=== PATIENT | female | born 1980 | race Caucasian/White ===

== ENCOUNTER 2017-07-20 10:45 | Outpatient (CLI) | payer BC ==
[2017-07-20 11:39] VITALS: BP 133/73; PULSE 86; RESP 16; TEMP 97
--- NOTE | 2017-09-01 08:46 | P.MSEPDOC ---
Presenting Problems - Arrival Data Date of Arrival on Unit: 07/20/17 Time of Arrival on Unit: 10:49 Mode of Transport: Ambulatory Medical History - Information : 1 Para: 0 Term: 0 : 0 Abortions: Spontaneous or Elective: 0 Number of Living Children: 0 - Gestational Age Gestational Age by AT (wks/days): 26 Weeks and 1 Days Vital Signs - Temperature Temperature: 97.0 F Temperature Source: Temporal Artery Scan - Pulse Right Pulse Oximetery Pulse Rate: 86 Pulse Assessment Method: Pulse Oximetry - Respirations Respiratory Rate: 16 Oxygen Delivery Method: Room Air O2 Sat by Pulse Oximetry: 97 - Blood Pressure Right Arm Blood Pressure: 133/73 Blood Pressure Mean: 93 Blood Pressure Source: Automatic Cuff Medical Screen Scoring (Post) - Cervical Exam Dilation: 0 cm = 0 Membranes: Intact - Uterine Contractions Frequency: N/A Duration: N/A Intensity: N/A - Maternal Vital Signs Maternal Temperature: N/A Maternal Blood Pressure: N/A Signs of Preeclampsia: N/A Maternal Respirations: N/A - Maternal Trauma Maternal Trauma: N/A - Assessment Heart Rate: 150 Heart Rate - NICHD Category: Category I (Normal) = 0 Position: N/A Station: N/A - Total Score Total Score (Post): 0 - Post Treatment Level of Risk Post Treatment Level of Risk: Low (0-5) Physician Notification (Post) - Physician Notified Physician Notified Date: 07/20/17 Physician Notified Time: 11:15 Physician/Practitioner Notified:: Dr Dan Spoke With: Verbal New Order Received: Yes - Notification Comment Comment: Pt arrived today with possible Premature ROM 26 1/7 weeks gestation, amnisure negative, cervix closed, patient discharged home. Disposition - Disposition OB Disposition: Discharge to home Discharge Date: 07/20/17 Discharge Time: 11:30 I agree with the RN Medical Screening Exam: Yes Risk & Benefit of care provided described in d/c instruction: Yes Diagnosis: FALSE LABOR BEFORE 37 COMPLETED WEEKS OF GEST, SECOND TRI
== END 2017-07-20 11:30 | disposition home or self-care (01) ==
LOC: FBPOP 10:45
PROVIDERS: ATTEND Obstetrics & Gynecology
DX: O47.02 False labor before 37 completed weeks of gestation, second trimester (principal); Z3A.26 26 weeks gestation of pregnancy
CPT/HCPCS: 84112; 99213

== ENCOUNTER 2020-10-30 16:30 | Outpatient (CLI) | payer BC ==
[2020-10-30 17:48] VITALS: BP 133/77; PULSE 78; RESP 16; TEMP 98.4
--- NOTE | 2020-11-23 08:06 | P.MSEPDOC ---
Presenting Problems - Arrival Data Date of Arrival on Unit: 10/30/20 Time of Arrival on Unit: 16:28 Mode of Transport: Ambulatory - Complaint OB-Reason for Admission/Chief Complaint: Rule Out PROM Comment: pt reports possible leaking since friday morning Medical History - Information : 2 Para: 1 Term: 1 : 0 Abortions: Spontaneous or Elective: 0 Number of Living Children: 1 - Gestational Age Gestational Age by TA (wks/days): 23 Weeks and 1 Days Review of Systems - Review of Systems Constitutional: No problems Breast: No problems ENT: No problems Cardiovascular: No problems Respiratory: No problems Gastrointestinal: No problems Genitourinary: No problems Musculoskeletal: No problems Neurological: No problems Skin: No problems Vital Signs - Temperature Temperature: 98.4 F Temperature Source: Temporal Artery Scan - Pulse Right Brachial Pulse Rate: 78 Pulse Assessment Method: Automatic Cuff - Respirations Respiratory Rate: 16 Oxygen Delivery Method: Room Air - Blood Pressure Right Arm Blood Pressure: 133/77 Blood Pressure Mean: 95 Blood Pressure Source: Automatic Cuff Medical Screen Scoring (Pre) - Cervical Exam Dilation: Exam Deferred Effacement: Exam Deferred Membranes: Intact - Uterine Contractions Frequency: N/A Duration: N/A Intensity: N/A - Maternal Vital Signs Maternal Temperature: N/A Maternal Blood Pressure: N/A Signs of Preeclampsia: N/A Maternal Respirations: N/A - Maternal Trauma Maternal Trauma: N/A - Assessment - Baby A Baseline FHR: 145 Position: N/A Station: N/A - Total Score - Baby A Total Score - Baby A: 0 - Total Score - Baby B Total Score - Baby B: 0 - Total Score - Baby C Total Score - Baby C: 0 - Level of Risk - Baby A Level of Risk - Baby A: Low (0-5) - Level of Risk - Baby B Level of Risk - Baby B: Low (0-5) - Level of Risk - Baby C Level of Risk - Baby C: Low (0-5) Physician Notification (Pre) - Physician Notified Physician Notified Date: 10/30/20 Physician Notified Time: 17:05 New Order Received: Yes - Notification Comment Comment: reported pt visit with concerns of prom, reported negative amnisure but moderate moisture noted on while obtaining amnisure. reported afebrile, no bleeding, cramping contraction and positive movement per pt and audible with doppler. pt to be discharged. follow up for ultrasound in office tomorrow/ Disposition - Disposition OB Disposition: Physician follow up in office, Discharge to home Discharge Date: 10/30/20 Discharge Time: 17:22 I agree with the RN Medical Screening Exam: Yes Case reviewed; plan agreed upon as documented in EMR&OBIX.: Yes Comments: Patient was neither seen nor examined by me Diagnosis: RELATED CONDITIONS, UNSPECIFIED, SECOND TRIMESTER
== END 2020-10-30 17:22 | disposition home or self-care (01) ==
LOC: FBPOP 16:30
PROVIDERS: ATTEND Obstetrics & Gynecology
DX: O26.892 Other specified pregnancy related conditions, second trimester (principal); Z3A.23 23 weeks gestation of pregnancy
CPT/HCPCS: 84112; 99213

== ENCOUNTER 2021-02-02 05:51 | Inpatient (IN) | payer BC ==
[2021-02-02] MEDS ORDERED: OXYTOCIN 10 UNIT/ML 1 ML VIAL IM PRN (06:15)
[2021-02-02] MEDS ORDERED: TERBUTALINE 1 MG/ML VIAL SQ PRN (06:15)
[2021-02-02] MEDS ORDERED: METHYLERGONOVINE 0.2 MG/ML 1 ML AMP IM PRN (06:15)
[2021-02-02] MEDS ORDERED: PENICILLIN G POTASSIUM 5,000,000 UNIT in DEXTROSE 5% IN WATER 100 ML IVPB STA ×2 (06:15)
[2021-02-02] MEDS ORDERED: LACTATED RINGERS 1,000 ML IV SCH (06:15)
[2021-02-02] MEDS ORDERED: LIDOCAINE 0.5% (PF) 5 MG/ML (50 ML SDV) SQ PRN (06:15)
[2021-02-02] MEDS ORDERED: CARBOPROST TROMETHAMINE 250 MCG/ML 1 ML AMP IM PRN (06:15)
[2021-02-02] MEDS: LACTATED RINGERS 1,000 ML IV SCH ×3 (06:38→09:54)
[2021-02-02] MEDS ORDERED: OXYTOCIN 30 UNITS/500 ML NS 30 UNIT in SALINE 1 500ML.BAG IV SCH (08:00)
[2021-02-02 08:27] LABS: Anisocytosis Slight; Basophils % (A) 0 %; Eosinophils # (A) 0.1 k/uL (0-0.7); Eosinophils % (A) 1 %; HCT 33.5 % (34.0-46.0); HGB 11.5 gm/dL (11.4-16.0); Lymphocytes % (A) 16 %; MCH 26.8 pg (25.0-35.0); MCHC 34.3 g/dL (31.0-37.0); MCV 77.9 fL (80.0-100.0); Mean Platelet Volume 6.6; Microcytosis Slight; Monocytes # (A) 0.6 k/uL (0-1.0); Monocytes % (A) 5 %; Neutrophils # (A) 9.1 k/uL (1.3-7.7); Neutrophils % (A) 76 %; Platelet Count 246 k/uL (150-450); RDW 18.2 % (11.5-15.5)
--- NOTE | 2021-02-02 08:54 | P.HPOB ---
History of Present Illness H&P Date: 02/02/21 Chief Complaint: My water broke at 3:30 this morning This is a 40-year-old female 2 para 1001 EDC 02/23/2021 at 37 weeks gestation. Patient presents this morning with spontaneous amniorrhexis which occurred at home, continued clear fluid leakage, confirmed by amnio sure. She admits to mild uterine contractions that are irregular. Fetus is been active throughout the . Blood type is B+, rubella status immune. Pap smear, urine culture, hepatitis B surface antigen, HIV testing, gonorrhea and chlamydia cultures, preliminary group B strep cultures all negative. One-hour Glucola 137. history is also significant for advanced maternal age and chronic proteinuria. Past medical history significant for gestational hypertension with the first g estation, otherwise negative. Past surgical history is negative. Current medications vitamins daily. ALLERGIES: Tetracycline to which she reports hives On examination patient is 5 foot 5 inches, 240 pounds, blood pressure 142/86 on admission, repeat 130/70. General physical exam is within normal limits. Chest is clear in all camarena. Cervix is 5 cm dilated, 80% effaced, -2 station, vertex presentation. Artificial amniorrhexis of the fore bag reveals clear fluid. heart rate is consistent with reactive NST, baseline 140s. Impression 37 week intrauterine , active spontaneous labor. Preliminary group B strep cultures negative. Chronic proteinuria. All signs ot herwise reassuring. Advanced maternal age with normal chromosomal testing. Plan: Oxytocin augmentation if needed. Continue close maternal and surveillance. Penicillin G first dose has artery been given. Patient is requesting epidural and anesthesia team is aware. Anticipate normal spontaneous vaginal delivery. Review of Systems Constitutional: Reports as per HPI Past Medical History Past Medical History: No Reported History History of Any Multi-Drug Resistant Organisms: C-DIFF Date of last positivie culture/infection: Nov-December 2014 MDRO Source:: Stool Past Surgical History: Adenoidectomy Additional Past Surgical History / Comment(s): Rhinoplasty. Bunion surgery. Past Anesthesia/Blood Transfusion Reactions: No Reported Reaction Past Psychological History: No Psychological Hx Reported Smoking Status: Never smoker Past Alcohol Use History: None Reported Past Drug Use History: None Reported - Past Family History Father Family Medical History: No Reported History Medications and Allergies Home Medications Medication Instructions Recorded Confirmed Type Pnv 11/Iron Fum/Folic Acid/Om3 1 each PO DAILY 07/20/17 02/02/21 History [Virt-Bret Dha Softgel] Aspirin [Children's Aspirin] 81 mg PO DAILY 10/30/20 02/02/21 History Allergies Allergy/AdvReac Type Severity Reaction Status Date / Time Tetracyclines Allergy Rash/Hives Verified 10/30/20 16:36 Exam Vital Signs Temp Pulse Resp BP Pulse Ox 02/02/21 06:26 96.6 F L 87 16 134/89 98 02/02/21 06:11 96.6 F L 87 16 134/89 98 Intake and Output 02/01/21 02/02/21 02/02/21 22:59 06:59 14:59 Other: Weight 108.862 kg See dictation under HPI please Results Result Diagrams: 02/02/21 07:49 Abnormal Lab Results - Last 24 Hours (Table) 02/02/21 Range/Units 07:49 WBC 12.0 H (3.8-10.6) k/uL Hct 33.5 L (34.0-46.0) % MCV 77.9 L (80.0-100.0) fL RDW 18.2 H (11.5-15.5) % Neutrophils # 9.1 H (1.3-7.7) k/uL Assessment and Plan Assessment: 37 week intrauterine , active spontaneous labor. Preliminary group B strep cultures negative. Chronic proteinuria. Otherwise all signs reassuring. Plan: Epidural is being placed at time of this dictation. Penicillin G prophylaxis has been instituted. Continue close maternal and surveillance. Anticipate normal spontaneous vaginal delivery. Time with Patient: Less than 30
[2021-02-02] MEDS ORDERED: ROPIVACAINE 5MG/ML 20ML VIAL ONE (08:56)
[2021-02-02] MEDS ORDERED: fentaNYL (PF) 50 MCG/ML 5 ML AMP ONE (08:56)
[2021-02-02] MEDS ORDERED: SODIUM CHLORIDE 0.9% 100 ML BAG ONE (08:56)
[2021-02-02] MEDS ORDERED: ROPIVACAINE 100 MG, fentaNYL (PF). 200 MCG in SODIUM CHLORIDE 0.9% 76 ML EPIDURAL ONE (09:28)
[2021-02-02] MEDS: PENICILLIN G POTASSIUM 2,500,000 UNIT in DEXTROSE 5% IN WATER 100 ML IVPB SCH ×4 (10:16→15:17)
[2021-02-02] MEDS ORDERED: diphenhydrAMINE 50 MG/ML 1 ML VIAL IVP PRN ×2 (12:26)
[2021-02-02] MEDS ORDERED: LANOLIN CREAM 5 GM TUBE TOPICAL PRN (12:26)
[2021-02-02] MEDS ORDERED: ZOLPIDEM 5 MG TAB PO PRN (12:26)
[2021-02-02] MEDS ORDERED: diphenhydrAMINE 50 MG CAP PO PRN (12:26)
[2021-02-02] MEDS ORDERED: BENZOCAINE/MENTHOL SPRAY 1 GM/SPRAY AEROSOL TOPICAL PRN (12:26)
[2021-02-02] MEDS ORDERED: diphenhydrAMINE 25 MG CAP PO PRN (12:26)
[2021-02-02] MEDS ORDERED: diphenhydrAMINE ELIXIR 25 MG/10 ML CUP PO PRN (12:26)
[2021-02-02] MEDS ORDERED: SIMETHICONE 80 MG CHEWABLE PO PRN (12:26)
[2021-02-02] MEDS ORDERED: HYDROCORTISONE 2.5% RECTAL CREAM 30 GM TUBE RECTAL PRN (12:26)
--- NOTE | 2021-02-02 12:26 | P.PROBDLV ---
Vaginal Delivery Note - . Vaginal Delivery Note: This is a 40-year-old white female 2 para 1001 EDC 02/25/2021 at 37 weeks gestation who presented earlier this morning with spontaneous amniorrhexis which occurred at home, clear fluid. remarkable for maternal chronic proteinuria, advanced maternal age, and rubella status immune, blood type B positive, preliminary group B strep cultures negative. Please see admitting history and physical for details. Artificial amniorrhexis of a large fore-bag revealed clear fluid. Oxytocin augmentation was started and titrated. Penicillin G was actually given 2 doses per protocol. Patient progressed well through the first stage of labor, epidural was requested and placed. Patient progressed well through the first stage of labor and became completely dilated at 10/13/2008 hours. Station was high, therefore patient was allowed to "labor down" with the assistance of a peanut ball. Ultimately patient had the urge to push and was noted to be +1 station. Perineal body was prepped and draped in usual sterile fashion. Infant's head delivered occiput anterior with 1 push, he restituted accordingly. There was no nuchal cord noted. The anterior or left shoulder was delivered gently from underneath the pubic symphysis at which time the oropharynx, nasopharynx, and external nares were all bulb suctioned. Patient was officially delivered of a liveborn male infant at 1204 hrs. Umbilical cord was doubly clamped and ligated, he was handed to waiting nurses for evaluation where scores of 9 and 9 at one and 5 minutes respectively were given. Placenta delivered spontaneously with active management. It wasn't inspected and noted to be intact with trivascular cord at 1208 hrs. Uterus is then massaged. Careful inspection of the cervix, vagina, perineum, perirectal and periurethral areas revealed a small midline first-degree perineal laceration. This was repaired in the usual fashion using 3-0 repeat suture. All sponge needle and enhancement counts are correct at the end of the procedure. Patient is requesting circumcision for her son. Total estimated blood loss 200 mL's. 's weight 7 lbs. 1 oz. or 3190 g. Patient and her are allowed to begin the bonding experience in the LDR.
[2021-02-02] MEDS: IBUPROFEN 600 MG TAB PO SCH ×2 (15:16→20:30)
[2021-02-02] MEDS: SENNOSIDES-DOCUSATE SODIUM 1 EACH TAB PO SCH (20:30)
[2021-02-03] MEDS: IBUPROFEN 600 MG TAB PO SCH ×4 (02:54→20:56)
[2021-02-03] MEDS: SENNOSIDES-DOCUSATE SODIUM 1 EACH TAB PO SCH ×2 (08:05→20:57)
[2021-02-03] MEDS: ACETAMINOPHEN TAB 325 MG TAB PO PRN ×2 (08:06→19:55)
--- NOTE | 2021-02-03 10:26 | P.PN ---
Subjective Progress Note Date: 02/03/21 Principal diagnosis: Doing well post day #1 Slept well, minimal lochia, pain well managed, no complaints Objective - Vital Signs Vital signs: Vital Signs Temp 97.1 F L 02/03/21 08:00 Pulse 78 02/03/21 08:00 Resp 17 02/03/21 08:00 BP 138/81 02/03/21 08:00 Pulse Ox 98 02/02/21 06:26 Intake & Output 02/02/21 02/03/21 02/03/21 18:59 06:59 18:59 Intake Total 3670.833 Balance 3670.833 Intake: IV 3500 Intake, IV Titration 170.833 Amount Oxytocin 30 Units/500 ml 170.833 Ns 30 unit In Saline 1 500ml.bag @ Per Protocol IV .Q0M J[facility] Rx#:[id number] Other: # Voids 1 2 - Constitutional General appearance: Present: average body habitus, cooperative - EENT Eyes: Present: PERRLA - Respiratory Respiratory: bilateral: CTA - Cardiovascular Rhythm: regular - Gastrointestinal General gastrointestinal: Present: normal bowel sounds - Integumentary Integumentary: Present: normal - Neurologic Neurologic: Present: CNII-XII intact - Psychiatric Psychiatric: Present: A&O x's 3, appropriate affect, intact judgment & insight - Labs CBC & Chem 7: 02/02/21 07:49 Assessment and Plan Assessment: Doing well day #1 Plan: Continue care. Likely circumcision and discharge home tomorrow. Time with Patient: Less than 30
[2021-02-04] MEDS: IBUPROFEN 600 MG TAB PO SCH ×2 (07:59→13:25)
[2021-02-04] MEDS: SENNOSIDES-DOCUSATE SODIUM 1 EACH TAB PO SCH (08:01)
[2021-02-04 08:16] VITALS: BP 123/73; PULSE 68; RESP 16; TEMP 97.8
--- NOTE | 2021-02-04 08:21 | P.DS ---
Providers Date of admission: 02/02/21 06:09 Expected date of discharge: 02/04/21 Attending physician: Irma Pulido Primary care physician: Stated None Hospital Course: This is a 40-year-old white female 2 para 1001 EDC 02/25/2021 at 37 weeks gestation. Patient presented in active labor from home. remarkable for proteinuria, advanced maternal age. Please see dictated history and physical for details. Patient went on to swiftly deliver a liveborn male with scores of 9 and 9 at one and 5 minutes respectively. She did receive 2 doses of penicillin G for unknown group B strep status. Infant weighed 7 pounds 0.5 ounces or 3190 g. The was a small first-degree perineal laceration easily repaired. Please see dictated delivery note for details. This morning the patient is doing well. She is voiding, ambulating, passing flatus without difficulty. Vital signs are stable and she is afebrile, blood pressure 120s to 130s over 60s to 80s. She does have +1 peripheral edema. Normal reflexes. Breasts are not engorged. Chest is clear in all camarena. Patient is judged to be in very good condition for discharge home. She will follow-up with me in the office in 6 weeks. I have reminded her no int ercourse, tampons or douching. She will use [id number] Advil or Aleve, or Motrin as needed for pain. She will call with any fevers shakes or chills, foul smelling or copious lochia, with the passage of large blood clots, with any pain not alleviated by [id number] products, or indeed with any concerns. Assessment: Doing well second postoperative day Patient Condition at Discharge: Good Plan - Discharge Summary Discharge Rx Participant: No New Discharge Prescriptions: No Action Pnv 11/Iron Fum/Folic Acid/Om3 [Virt-Bret Dha Softgel] 1 each PO DAILY Aspirin [Children's Aspirin] 81 mg PO DAILY Discharge Medication List Pnv 11/Iron Fum/Folic Acid/Om3 [Virt-Bret Dha Softgel] 1 each PO DAILY 07/20/17 [History] Aspirin [Children's Aspirin] 81 mg PO DAILY 10/30/20 [History] Follow up Appointment(s)/Referral(s): Irma Pulido MD [STAFF PHYSICIAN] - 1 Week Discharge Disposition: HOME SELF-CARE
== END 2021-02-04 12:30 | disposition home or self-care (01) | DRG 807 ==
LOC: FBPOP 05:51 → 4FBP 06:09
PROVIDERS: ADMIT Obstetrics & Gynecology; ATTEND Obstetrics & Gynecology
PROC: 10E0XZZ Delivery of Products of Conception, External Approach (ICD-10-PCS; principal; 2021-02-02)
PROC: 0HQ9XZZ Repair Perineum Skin, External Approach (ICD-10-PCS; 2021-02-02)
PROC: 00HU33Z Insertion of Infusion Device into Spinal Canal, Percutaneous Approach (ICD-10-PCS; 2021-02-02)
PROC: 3E0R3BZ Introduction of Anesthetic Agent into Spinal Canal, Percutaneous Approach (ICD-10-PCS; 2021-02-02)
DX: O70.0 First degree perineal laceration during delivery (principal); Z37.0 Single live birth; O12.14 Gestational proteinuria, complicating childbirth; Z3A.37 37 weeks gestation of pregnancy; Z79.82 Long term (current) use of aspirin; Z79.899 Other long term (current) drug therapy; Z86.19 Personal history of other infectious and parasitic diseases; Z87.39 Personal history of other diseases of the musculoskeletal system and connective tissue; Z90.89 Acquired absence of other organs; Z87.09 Personal history of other diseases of the respiratory system; Z98.890 Other specified postprocedural states
CPT/HCPCS: 59025; 84112; 85025; 86850; 86900; 86901; 99213

== ENCOUNTER 2021-02-05 19:42 | Inpatient (IN) | payer BC ==
[2021-02-05 21:05] LABS: Appearance,Urine Clear (Clear); Bilirubin,Urine Negative (Negative); Blood,Urine Moderate (Negative); Color,Urine Colorless; Glucose,Urine (UA) Negative (Negative); Ketones,Urine Negative (Negative); Leukocyte Esterase,Urine Negative (Negative); Nitrite,Urine Negative (Negative); PH, Urine 6.5 (5.0-8.0); Protein,Urine Negative (Negative); RBC,Urine 1 /hpf (0-5); Specific Gravity,Urine 1.005 (1.001-1.035); Urobilinogen,Urine <2.0 mg/dL (<2.0); WBC,Urine 2 /hpf (0-5)
[2021-02-05 21:12] LABS: Creatinine,Urine Random 34.8 mg/dL; Protein/Creatinine Ratio,Urine 0.431
[2021-02-05 21:13] LABS: Creatinine,Urine Random 34.1 mg/dL
[2021-02-05 21:32] LABS: Anisocytosis Slight; Basophils % (A) 0 %; Eosinophils # (A) 0.3 k/uL (0-0.7); Eosinophils % (A) 3 %; HCT 30.4 % (34.0-46.0); HGB 10.3 gm/dL (11.4-16.0); Lymphocytes # (A) 2.4 k/uL (1.0-4.8); Lymphocytes % (A) 22 %; MCH 26.9 pg (25.0-35.0); MCHC 33.9 g/dL (31.0-37.0); MCV 79.4 fL (80.0-100.0); Mean Platelet Volume 7.3; Microcytosis Slight; Monocytes # (A) 0.6 k/uL (0-1.0); Monocytes % (A) 5 %; Neutrophils # (A) 7.4 k/uL (1.3-7.7); Neutrophils % (A) 68 %; Platelet Count 276 k/uL (150-450); RBC 3.83 m/uL (3.80-5.40); RDW 18.2 % (11.5-15.5); WBC 10.8 k/uL (3.8-10.6)
[2021-02-05 21:40] LABS: ALT 38 U/L (4-34); AST 46 U/L (14-36); African American GFR (CKD) >90 (>60 ml/min/1.73 sqM); Blood Urea Nitrogen 10 mg/dL (7-17); LDH 691 U/L (313-618); Non-African American GFR(CKD) 85 (>60 ml/min/1.73 sqM); Uric Acid 6.6 mg/dL (3.7-7.4)
[2021-02-05] MEDS ORDERED: MAGNESIUM SULFATE-WATER PMX 4 GM in WATER FOR INJECTION 1 100ML.BAG IVPB ONE (22:13)
[2021-02-05] MEDS: LACTATED RINGERS 1,000 ML IV SCH (23:04)
[2021-02-05] MEDS: ACETAMINOPHEN TAB 500 MG TAB PO PRN (23:12)
[2021-02-05] MEDS: MAGNESIUM SULFATE-WATER PMX 20 GM in WATER FOR INJECTION 1 500ML.BAG IV SCH (23:48)
[2021-02-06 08:35] LABS: Anisocytosis Slight; Basophils % (A) 0 %; Eosinophils # (A) 0.3 k/uL (0-0.7); Eosinophils % (A) 3 %; HGB 10.2 gm/dL (11.4-16.0); Lymphocytes # (A) 2.1 k/uL (1.0-4.8); Lymphocytes % (A) 21 %; MCH 26.5 pg (25.0-35.0); MCHC 33.1 g/dL (31.0-37.0); Mean Platelet Volume 6.2; Microcytosis Slight; Monocytes # (A) 0.6 k/uL (0-1.0); Monocytes % (A) 6 %; Neutrophils # (A) 6.9 k/uL (1.3-7.7); Neutrophils % (A) 69 %; Platelet Count 262 k/uL (150-450); RBC 3.87 m/uL (3.80-5.40); RDW 18.2 % (11.5-15.5)
[2021-02-06 08:56] LABS: ALT 52 U/L (4-34); AST 55 U/L (14-36); African American GFR (CKD) >90 (>60 ml/min/1.73 sqM); Blood Urea Nitrogen 9 mg/dL (7-17); LDH 768 U/L (313-618); Non-African American GFR(CKD) 88 (>60 ml/min/1.73 sqM); Uric Acid 6.6 mg/dL (3.7-7.4)
--- NOTE | 2021-02-06 08:56 | P.HPOB ---
History of Present Illness H&P Date: 02/06/21 Chief Complaint: preeclampsia The patient is a 40-year-old 2 para 2001 who presents the hospital the and into triage complaining of increased blood pressures at home having delivered vaginally approximately 2-3 days ago. Home blood pressures were in the range of 150s over 90-100 and the patient did complain of occasional headache. In triage, she was found to have relatively normal but slightly labile blood pressures. Laboratory workup demonstrated an elevated level of AST, ALT, LDH, and uric acid. Given these findings, the patient was admitted wi th the diagnosis of preeclampsia for prophylactic treatment with magnesium sulfate. Her was otherwise uncomplicated and she and the are doing well otherwise. Obstetrical history: 2 para 2001 with 2 term vaginal deliveries, most recent which was approximately 3-4 days ago and was uncomplicated in nature. Blood pressures at that time were normal. Remainder of her obstetrical history is as listed in history of present illness. She does report that there was some concern for preeclampsia in her first resulting in induction of labor. Gynecologic history: Unremarkable. Review of Systems Review of systems is confined to history of present illness. Past Medical History Past Medical History: No Reported History History of Any Multi-Drug Resistant Organisms: C-DIFF Date of last positivie culture/infection: Nov-December 2014 MDRO Source:: Stool Past Surgical History: Appendectomy Additional Past Surgical History / Comment(s): Rhinoplasty. Bunion surgery. Past Anesthesia/Blood Transfusion Reactions: No Reported Reaction Past Psychological History: No Psychological Hx Reported Smoking Status: Never smoker Past Alcohol Use History: None Reported Past Drug Use History: None Reported - Past Family History Father Family Medical History: No Reported History Medications and Allergies Home Medications Medication Instructions Recorded Confirmed Type Pnv 11/Iron Fum/Folic Acid/Om3 1 each PO DAILY 07/20/17 02/05/21 History [Virt-Bret Dha Softgel] Ibuprofen 2 tab PO DIRECTED PRN 02/05/21 02/05/21 History Allergies Allergy/AdvReac Type Severity Reaction Status Date / Time Tetracyclines Allergy Rash/Hives Verified 10/30/20 16:36 Exam Vital Signs Temp Pulse Resp BP Pulse Ox 02/06/21 08:00 98.2 F 70 16 136/80 99 02/06/21 07:00 59 L 111/64 02/06/21 06:00 57 L 16 140/80 98 02/06/21 05:00 60 16 132/80 99 02/06/21 04:00 62 16 130/80 99 02/06/21 03:00 97.5 F L 68 16 126/62 99 02/06/21 02:00 59 L 16 135/79 99 02/06/21 01:00 59 L 16 135/80 99 02/06/21 00:00 57 L 16 127/77 99 02/05/21 23:45 56 L 16 127/77 99 02/05/21 23:30 60 16 141/80 99 02/05/21 23:15 96.9 F L 61 16 137/76 99 02/05/21 20:02 98.1 F 77 16 138/86 98 Intake and Output 02/05/21 02/06/21 02/06/21 22:59 06:59 14:59 Intake Total 623 140 Output Total 1300 800 Balance -317 660 Intake: Intake, IV Titration 623 140 Amount Lactated Ringers 1,000 ml 155 40 @ 20 mls/hr IV .Q24H [facility] Rx#:[id number] Magnesium Sulfate-Water 368 100 Pmx 20 gm In Water For Injection 1 500ml.bag @ 2 GM/HR 50 mls/hr IV .Q10H JIM Rx#:[id number] Magnesium Sulfate-Water 100 Pmx 4 gm In Water For Injection 1 100ml.bag @ 300 mls/hr IVPB ONCE ONE Rx#:[id number] Output: Urine 1300 800 Other: # Voids 0 1 Weight 106.141 kg 106.141 kg In general, this is a well-developed, well-nourished white female in no acute distress. Her heart has a regular rhythm and rate without murmur. Her lungs are clear to auscultation bilaterally in all camarena. Her abdomen is nondistended, has normal active bowel sounds, soft, nontender, and without any palpable masses aside from uterine fundus which is appropriate at and around the umbilicus. Her extremities are without any cyanosis, clubbing, or significant edema and are nontender to palpation bilaterally. Results Result Diagrams: 02/06/21 07:17 02/05/21 21:22 Abnormal Lab Results - Last 24 Hours (Table) 02/05/21 02/05/21 02/05/21 Range/Units 20:08 20:08 21:22 WBC (3.8-10.6) k/uL Hgb (11.4-16.0) gm/dL Hct (34.0-46.0) % MCV (80.0-100.0) fL RDW (11.5-15.5) % AST 46 H (14-36) U/L ALT 38 H (4-34) U/L Lactate Dehydrogenase 691 H (313-618) U/L Urine Blood Moderate H (Negative) U Random Total Protein 15 H (<12) mg/dL 02/05/21 02/06/21 Range/Units 21:22 07:17 WBC 10.8 H (3.8-10.6) k/uL Hgb 10.3 L 10.2 L (11.4-16.0) gm/dL Hct 30.4 L 31.0 L (34.0-46.0) % MCV 79.4 L (80.0-100.0) fL RDW 18.2 H 18.2 H (11.5-15.5) % AST (14-36) U/L ALT (4-34) U/L Lactate Dehydrogenase (313-618) U/L Urine Blood (Negative) U Random Total Protein (<12) mg/dL Assessment and Plan (1) Pre-eclampsia, Current Visit: Yes Status: Acute Code(s): O14.95 - UNSPECIFIED PRE- ECLAMPSIA, COMPLICATING THE PUERPERIUM SNOMED Code(s): 381753071 Plan: The patient has been admitted for prophylactic magnesium sulfate treatment. Repeat laboratory this morning is pending aside from CBC which is stable. Blood pressures have remained stable overnight though she is on magnesium sulfate. She was initially loaded with 4 g of magnesium sulfate and is currently on a maintenance of 2 g per hour. She does appear to be diuresing well and is tolerating the treatment at this time. She will have magnesium sulfate discontinued at 24 hours, approximately 9:00 this evening and her blood pressures will be monitored thereafter with possible discharge home tomorrow pending vital signs. We will continue to monitor closely.
[2021-02-06] MEDS: ACETAMINOPHEN TAB 500 MG TAB PO PRN ×2 (09:12→19:54)
[2021-02-06] MEDS: MAGNESIUM SULFATE-WATER PMX 20 GM in WATER FOR INJECTION 1 500ML.BAG IV SCH ×2 (09:13→20:36)
[2021-02-06] MEDS: IBUPROFEN 600 MG TAB PO SCH ×2 (14:27→21:06)
[2021-02-06] MEDS: LACTATED RINGERS 1,000 ML IV SCH (23:21)
[2021-02-07 03:41] VITALS: TEMP 97.3
[2021-02-07] MEDS: MAGNESIUM SULFATE-WATER PMX 20 GM in WATER FOR INJECTION 1 500ML.BAG IV SCH (05:35)
--- NOTE | 2021-02-07 08:11 | P.DS ---
Providers Date of admission: 02/06/21 13:48 Expected date of discharge: 02/07/21 Attending physician: Bony Vazquez Primary care physician: Stated None Hospital Course: This is a 40-year-old female 2 para 2002 status post vaginal delivery 02/02/2021. Patient was home and noticed a mild headache. She took her blood pressure and recorded 150/90. She reported to the hospital for admission and evaluation. Admitting labs included a slightly elevated ALTs at 52, AST 55. LDH 768. For this reason and patient's symptomatology, she was admitted and 4 g loading dose of magnesium sulfate was given. This is titrated to 2 g per hour. Please see Dr. Vazquez's admitting history and physical for details. This morning the patient feels well. She has had no further headaches. Her blood pressure has remained in the 1:30 to 140/60 to 80s range. She denies headache, visual changes, or right upper quadrant pain. Extremities are negative for edema. Reflexes are +1. There is no clonus. Patient is anxious to go home. She has minimal lochia rubra, breasts are not engorged. She is judged to be in good condition for discharge home. She will continue taking her blood pressure at home and read it down daily. She will return to the office in 1 week with these blood pressures. I am not starting labetalol at this time, however we discussed the possibility. She will call with any fevers shakes or chills, headache visual changes or right upper quadrant pain, with any issues not alleviated by [id number] ibuprofen products, or indeed with any concerns. Assessment: Doing well hospital day number two Patient Condition at Discharge: Good Plan - Discharge Summary Discharge Rx Participant: No New Discharge Prescriptions: No Action Pnv 11/Iron Fum/Folic Acid/Om3 [Virt-Bret Dha Softgel] 1 each PO DAILY Ibuprofen 2 tab PO DIRECTED PRN PRN Reason: Pain Discharge Medication List Pnv 11/Iron Fum/Folic Acid/Om3 [Virt-Bret Dha Softgel] 1 each PO DAILY 07/20/17 [History] Ibuprofen 2 tab PO DIRECTED PRN 02/05/21 [History] Follow up Appointment(s)/Referral(s): Irma Pulido MD [STAFF PHYSICIAN] - 1 Week Discharge Disposition: HOME SELF-CARE
[2021-02-07 09:11] VITALS: BP 129/86; PULSE 67; RESP 18
== END 2021-02-07 08:50 | disposition home or self-care (01) | DRG 776 ==
LOC: FBPOP 19:42 → 4FBP 22:08 → OBSVTOIN 02-06 13:48
PROVIDERS: ADMIT Obstetrics & Gynecology; ATTEND Obstetrics & Gynecology
DX: O14.95 Unspecified pre-eclampsia, complicating the puerperium (principal); Z86.19 Personal history of other infectious and parasitic diseases; Z90.49 Acquired absence of other specified parts of digestive tract; Z87.19 Personal history of other diseases of the digestive system; Z87.39 Personal history of other diseases of the musculoskeletal system and connective tissue; Z87.09 Personal history of other diseases of the respiratory system; Z98.890 Other specified postprocedural states; Z88.1 Allergy status to other antibiotic agents
CPT/HCPCS: 81001; 82565; 82570; 83615; 84156; 84450; 84460; 84520; 84550; 85025; 99215

== ENCOUNTER → 2024-09-08 | Outpatient (CLI) | payer BC ==
--- NOTE | 2024-09-08 11:28 | XR ---
EXAMINATION TYPE: XR knee complete LT DATE OF EXAM: 09/08/2024 COMPARISON: NONE CLINICAL INDICATION: Female, 44 years old with history of [id number] CELLULITIS,LT KNEE PAIN; TECHNIQUE: Three views are submitted. FINDINGS: Mild narrowing in the medial compartment of the knee joint with marginal spurring. Trace amount of fl uid in the suprapatellar bursa.. Osseous structures are intact. No acute fracture seen. IMPRESSION: 1. No evidence of acute fracture or osteomyelitis. 2. Mild osteoarthritis.. [facility], , 09/08/2024 11:26 AM
== END | disposition home or self-care (01) ==
LOC: RADXRYALE 11:02
PROVIDERS: ATTEND Internal Medicine
DX: M17.12 Unilateral primary osteoarthritis, left knee (principal); L03.116 Cellulitis of left lower limb